=== PATIENT | male | born 1945 | race Caucasian/White ===

== ENCOUNTER 2016-09-16 09:40 | Day surgery (SDC) | payer MEDICARE, BC ==
--- NOTE | ~2016-09-16 | EGD ---
EGD REPORT [facility] [address] [place]. [address] NAME: JULIOCESAR LU : [birth year] STATUS : REG [facility] PAT#: [id number] AGE: 70 ADM/REG DATE : 09/16/16 MR#: [id number] REPORT SERV DATE: 09/16/16 DICTATED BY: SATHYA BENTLEY DATE: 09/16/16 REPORT STATUS : Draft TRANSCRIBED BY: [facility] DATE: 09/16/16 [facility] Patient Name: Juliocesar Lu Date of : 1945 Attending MD: SATHYA BENTLEY MD Procedure Date No Time: 09/16/2016 Procedure: Colonoscopy Indications: Personal history of colonic polyps, Last colonoscopy: June 2013 Referring MD: Giancarlo Joyner Medicines: Propofol per Anesthesia Complications: No immediate complications. Estimated blood loss: None. Procedure: Pre-Anesthesia Assessment: - After reviewing the risks and benefits, the patient was deemed in satisfactory condition to undergo the procedure. - Prior to the procedure, a History and Physical was performed, and patient medications and allergies were reviewed. The patient's tolerance of previous anesthesia was also reviewed. The risks and benefits of the procedure and the sedation options and risks were discussed with the patient. All questions were answered, and informed consent was obtained. Prior Anticoagulants: The patient has taken no previous anticoagulant or antiplatelet agents. ASA Grade Assessment: II - A patient with mild systemic disease. After reviewing the risks and benefits, the patient was deemed in satisfactory condition to undergo the procedure. After I obtained informed consent, the scope was passed under direct vision. Throughout the procedure, the patient's blood pressure, pulse, and oxygen saturations were monitored continuously. The CF [id number] was introduced through the anus and advanced to the cecum, identified by appendiceal orifice and ileocecal valve. The colonoscopy was performed without difficulty. The ileocecal valve and appendiceal orifice were photographed. The patient tolerated the procedure well. The quality of the bowel preparation was good. The bowel preparation used was split dose polyethylene glycol (PEG). Scope withdrawal time was greater than 8 minutes. Findings: The perianal and digital rectal examinations were normal. Pertinent negatives include normal sphincter tone. A sessile polyp was found in the ascending colon. The polyp was 4 mm in EGD REPORT [address] [address] NAME: JULIOCESAR LU : [birth year] STATUS : REG [facility] PAT#: [id number] AGE: 70 ADM/REG DATE : 09/16/16 MR#: [id number] REPORT SERV DATE: 09/16/16 DICTATED BY: SATHYA BENTLEY DATE: 09/16/16 REPORT STATUS : Draft TRANSCRIBED BY: [employer] DATE: 09/16/16 size. The polyp was removed with a cold snare. Resection and retrieval were complete. Estimated blood loss: none. A sessile polyp was found in the transverse colon. The polyp was 5 mm in size. The polyp was removed with a cold snare. Resection and retrieval were complete. Estimated blood loss: none. Two sessile polyps were found in the rectum. The polyps were diminutive in size. These polyps were removed with a cold biopsy forceps. Resection and retrieval were complete. Estimated blood loss: none. The exam was otherwise without abnormality. Impression: - One 4 mm polyp in the ascending colon. Resected and retrieved. - One 5 mm polyp in the transverse colon. Resected and retrieved. - Two diminutive polyps in the rectum. Resected and retrieved. - The examination was otherwise normal. Recommendation: - Discharge patient to home (ambulatory). - Return to previous diet. - Continue present medications. - Await pathology results. - Repeat colonoscopy in 5 years for surveillance. - Patient has a contact number available for emergencies. The signs and symptoms of potential delayed complications were discussed with the patient. Return to normal activities tomorrow. Written discharge instructions were provided to the patient. Procedure Code(s): --- Professional --- 78679, Colonoscopy, flexible, proximal to splenic flexure; with removal of tumor(s), polyp(s), or other lesion(s) by snare technique 28551, 59, Colonoscopy, flexible, proximal to splenic flexure; with biopsy, single or multiple Diagnosis Code(s): --- Professional --- K62.1, Rectal polyp D12.3, Benign neoplasm of transverse colon D12.2, Benign neoplasm of ascending colon Z86.010, Personal history of colonic polyps CPT copyright 2013 [employer]. All rights reserved. The codes documented in this report are preliminary and upon malt loader review may be revised to meet current compliance requirements. EGD REPORT [facility] [address] [place] [address] NAME: JULIOCESAR LU : [birth year] STATUS : REG [facility] PAT#: [id number] AGE: 70 ADM/REG DATE : 09/16/16 MR#: [id number] REPORT SERV DATE: 09/16/16 DICTATED BY: SATHYA BENTLEY DATE: 09/16/16 REPORT STATUS : Draft TRANSCRIBED BY: [employer] DATE: 09/16/16 SATHYA BENTLEY MD 09/16/2016 11:54 AM This report has been signed electronically. Number of Addenda: 0 Note Initiated On: 09/16/2016 11:25 AM Scope Withdrawal Time 0 hours 8 minutes 22 seconds [address] [address]
[~2016-09-16 09:40] MED LIST: ATEN25 PO; LISINOPRIL40 MG PO; PREV15 PO; ZESTRIL20 MG PO; ZOCOR40 PO
== END 2016-09-16 23:59 | disposition home or self-care (01) ==
LOC: DMU 09:40
PROVIDERS: Internal Medicine Gastroenterology
PROC: 0DBP8ZX Excision of Rectum, Via Natural or Artificial Opening Endoscopic, Diagnostic (ICD-10-PCS; 2016-09-16)
PROC: 0DBK8ZX Excision of Ascending Colon, Via Natural or Artificial Opening Endoscopic, Diagnostic (ICD-10-PCS; principal; 2016-09-16 11:00)
PROC: 0DBL8ZX Excision of Transverse Colon, Via Natural or Artificial Opening Endoscopic, Diagnostic (ICD-10-PCS; 2016-09-16 11:00)
DX: Z12.11 Encounter for screening for malignant neoplasm of colon (principal); D12.2 Benign neoplasm of ascending colon; D12.3 Benign neoplasm of transverse colon; K62.1 Rectal polyp; I10 Essential (primary) hypertension; Z86.010 Personal history of colon polyps; Z79.899 Other long term (current) drug therapy; Z98.890 Other specified postprocedural states
CPT/HCPCS: 88305